=== PATIENT | male | born 1995 | race Caucasian/White ===

== ENCOUNTER 2024-05-26 17:49 | Emergency (ER) | payer MEDICAID, SELFPAY ==
[2024-05-26 18:03] VITALS: BP 156/89; PULSE 116; RESP 18; TEMP 38.4; O2SAT 97
[2024-05-26] MEDS: Amoxicillin 875/Clav. 125 TAB PO (19:03)
[2024-05-26] MEDS: Acetaminophen 500 MG TAB 1000 MG PO (19:03)
[2024-05-26] MEDS: Dexamethasone 4 MG TAB 8 MG PO (19:03)
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
--- NOTE | 2024-05-27 08:09 | NUR.NOTE ---
Patient called asking about the result of his strep test. It was positive. RE: the provider note, I read to him what she had written in the discharge part of her note to the patient. He is aware of the prescription at the pharmacy and will pick it up. Nursing Note:
== END 2024-05-26 19:39 | disposition home or self-care (01) ==
PROVIDERS: Emergency Provider Emergency Medicine
DX: J02.0 Streptococcal pharyngitis (principal); K13.70 Unspecified lesions of oral mucosa; R50.9 Fever, unspecified
CPT/HCPCS: 87880; 99283; J8540